=== PATIENT | male | born 1985 | race Caucasian/White ===

== ENCOUNTER → 2018-09-02 | Outpatient (CLI) | payer OTHER ==
[2015-10-31 17:01] VITALS: BP 102/57
[~2018-09-02] MED LIST: CEPH500T PO; HYDR-3164 PO
--- NOTE | 2018-09-02 15:27 | KCIC ---
MRI Lumbar Spine without contrast History: Back pain getting worse, muscle spasms, right hip and leg pain Technique: Multiplanar, multi sequential noncontrast MR imaging was performed of the lumbar spine. Comparison: None Findings: Lumbar vertebral body stature and AP alignment are maintained. There is mild to moderate degenerative disc disease at L5-S1. Conus terminates near L1. There is no significant marrow edema. L3-L4: Spinal canal and neural foramina are adequate. L4-L5: There is minimal buckling of the ligamentum flavum and facet degenerative change change. Neural foramina and spinal canal are adequate. L5-S1: There is protrusion/contained extrusion more eccentric to the right lateral recess estimated about 5 to 6 mm AP by about 12 mm transverse by 7 mm CC. This results in fairly severe right lateral recess stenosis and impingement of the descending right S1 nerve root. Neural foramina are adequate. Impression: 1. There is hksa-av-szogzqcc degenerative disease at L5-S1. There is protrusion/contained extrusion eccentric to the right lateral recess at L5-S1 with impingement of the distal right S1 nerve root. Electronically signed by: Leonidas Meyer MD (09/02/2018 3:24 PM) [facility]
== END | disposition home or self-care (01) ==
LOC: KCIC MRI 14:18
PROVIDERS: ATTEND Family Medicine
DX: M51.37 Other intervertebral disc degeneration, lumbosacral region (principal); M51.27 Other intervertebral disc displacement, lumbosacral region; M48.07 Spinal stenosis, lumbosacral region
CPT/HCPCS: 72148

== ENCOUNTER → 2019-02-03 | Outpatient (CLI) | payer OTHER ==
[2015-10-31 17:01] VITALS: BP 102/57
[~2019-02-03] MED LIST changes: +DOCU-109 PO; +IBUP200T58 PO; +METH-38 PO; +NAPR220T70 PO
== END | disposition home or self-care (01) ==
LOC: EDSTATUS 12:45 → SURG 13:58
PROVIDERS: ATTEND Neurological Surgery
DX: Z01.818 Encounter for other preprocedural examination (principal); M51.17 Intervertebral disc disorders with radiculopathy, lumbosacral region
CPT/HCPCS: 36415; 87641

== ENCOUNTER 2019-02-07 07:02 | Day surgery (SDC) | payer OTHER ==
--- NOTE | 2019-02-06 13:56 | HP ---
ADMIT DATE: 02/07/2019 PREOPERATIVE HISTORY AND PHYSICAL DATE OF SURGERY: 02/07/2019 HISTORY OF PRESENT ILLNESS: The patient is a pleasant 33-year-old, who has low back and right buttock and posterior thigh pain. He notes numbness in his right foot. The problem has been present for 2 years. He said over the last 5 months this has been severe. He rates his pain a 7-8/10. Mornings and bending make them worse. He has had physical therapy through 07/2018 without benefit. PAST MEDICAL HISTORY: Wound disimpaction, dystonia. PAST SURGICAL HISTORY: Urinary tract revision in 1997. FAMILY HISTORY: Cancer, heart problems and disease, hypertension, spine problems. SOCIAL HISTORY: Employed in maintenance. Single. Exercises daily. Denies substance abuse. Denies tobacco use. Drinks alcohol 1-2 times per day. ALLERGIES: No known drug allergies. CURRENT MEDICATIONS: Flexeril, Aleve, Advil, and Tylenol. REVIEW OF SYSTEMS: A 12-point review of systems was obtained and is noncontributory except for that mentioned above. PHYSICAL EXAMINATION: NEUROSURGERY EXAMINATION: GENERAL APPEARANCE: Alert, pleasant, in no acute distress. HEAD: Normocephalic, atraumatic. SKIN: Warm and dry. MUSCULOSKELETAL: Lumbar paraspinal muscle bulk is normal, restricted range of motion of the lumbar spine, eqgc-ni-eyaazarb tenderness of the lower lumbar spine with palpation, normal range of motion of the lower extremities bilaterally. EXTREMITIES: No clubbing, cyanosis or edema. NEUROLOGIC: Alert and oriented x 3, normal recent and remote memory. Strength 5/5 in bilateral lower extremities. Sensory is intact to light touch in bilateral lower extremities except for diffuse decrease involving his right foot. Reflexes are trace and symmetric in the lower extremities bilaterally, positive straight leg raising on the right, negative straight leg raising on the left, normal gait. IMAGING DATA: I reviewed a lumbar MRI scan. On that study, there are moderate degenerative changes at L5-S1 with a disk extrusion, eccentric to the right and the right lateral recess at L5-S1 with compression of the right S1 nerve. ASSESSMENT/ PLAN: The patient has significant radiculopathy. He failed to improve with conservative measures. My recommendation is that he will undergo lumbar microsurgery. I spoke about surgery and the risks involved. He understands. He would like to go ahead. We will make the arrangements. SAMUEL Isabella HAMMER MD DR: Saima JOB#: [id number] / [id number] LAUREN
[~2019-02-07] VITALS: Ht 172.7 cm; Wt 77.1 kg
[~2019-02-07 07:02] MED LIST changes: +BACITRACIN 50,000 UNIT in IV NORMAL SALINE 1000ML BAG 1,000 ML IRR ONE; +BUPIVACAINE-EPI 0.5%-1:200000 MPF 30 ML VIAL. INJ ONE; -DOCU-109 PO; +HYDROmorphone 2 MG/ML VIAL IV PRN; +IV RINGERS,LACTATED 1000ML 1,000 ML IV SCH; +LIDOCAINE 1% PF 2 ML VIAL. ID PRN; -METH-38 PO; +MORPHINE SULFATE 2 MG/ML VIAL. IV PRN; +ONDANSETRON PF 4 MG/2 ML VIAL. IV PRN; +PROCHLORPERAZINE 10 MG/2 ML VIAL. IV PRN; +fentaNYL PF VIAL 100 MCG/2 ML VIAL IV PRN
[2019-02-07] MEDS ORDERED: THROMBIN TOPICAL 20,000 UNIT SPRAY.SYRN KIT TP ONE (07:08)
[2019-02-07] MEDS ORDERED: KETOROLAC 60 MG/2 ML VIAL. ONE (07:08)
[2019-02-07] MEDS ORDERED: GELATIN SPONGE SIZE 100. ONE (07:08)
[2019-02-07] MEDS ORDERED: ROCURONIUM 50 MG/5 ML VIAL. ONE (08:17)
[2019-02-07] MEDS ORDERED: MIDAZOLAM HCL/PF 2 MG/2 ML VIAL. ONE (08:17)
[2019-02-07] MEDS ORDERED: REMIFENTANIL 2 MG VIAL. IV ONE (08:17)
[2019-02-07] MEDS ORDERED: LIDOCAINE 2% PF 5 ML VIAL. ONE (08:18)
[2019-02-07] MEDS ORDERED: DEXAMETHASONE SOD PHOS 20 MG/5 ML VIAL. ONE (08:18)
[2019-02-07] MEDS ORDERED: PROPOFOL 0 ML IV ONE (08:18)
[2019-02-07] MEDS ORDERED: DESFLURANE 61 TO 120 MINUTES IH ONE (08:18)
[2019-02-07] MEDS ORDERED: PROPOFOL 20 ML IV ONE (08:18)
[2019-02-07] MEDS ORDERED: ONDANSETRON PF 4 MG/2 ML VIAL. ONE (08:18)
[2019-02-07] MEDS ORDERED: GLYCOPYRROLATE 1 MG/5 ML VIAL. ONE (08:18)
[2019-02-07] MEDS ORDERED: FAMOTIDINE 20 MG/2 ML VIAL ONE (08:19)
[2019-02-07] MEDS ORDERED: PHENYLEPHRINE 10 MG/ML VIAL. ONE (08:26)
[2019-02-07] MEDS ORDERED: SCOPOLAMINE 1.5MG PATCH. TD SCH (09:00)
[2019-02-07] MEDS ORDERED: SCOPOLAMINE 1.5MG PATCH. TD ONE (09:00)
[2019-02-07] MEDS ORDERED: NEOSTIGMINE METHYLSULFATE 5 MG/5 ML SYRINGE. ONE (09:30)
[2019-02-07] MEDS ORDERED: HYDR-3164 PO (09:41)
[2019-02-07] MEDS ORDERED: METH-38 PO (09:41)
[2019-02-07] MEDS ORDERED: DOCU-109 PO (09:41)
--- NOTE | 2019-02-07 09:42 | DISCH ---
DISCHARGE INSTRUCTIONS Condition on Discharge Condition on Discharge: Stable Activity After Discharge Activity Instructions for Disc: Activity as tolerated, Avoid exertion Other activity instructions: no driving for a week Lifting Instructions after Dis: No heavy lifting, No pulling or pushing, Do not lift >10 pounds Diet after Discharge Diet after Discharge: Regular Additional Diet Restrictions: resume home diet Wound Incision Care Wound/Incision Care: Ice to area for comfort Other wound/incision instructi: may remove dressing in 48 hours if dry then may shower, no soaking Contacting the [facility] after DC Call your doctor for: Concerns you may have Follow-Up Follow up with: Dr. Hammer's nurse in 2 weeks [phone] SAMUEL HAMMER MD Feb 07, 2019 09:42
[2019-02-07] MEDS ORDERED: PROPOFOL 50 ML IV ONE (10:58)
[2019-02-07] MEDS ORDERED: DESFLURANE > 120 MINUTES IH ONE (10:59)
[2019-02-07] MEDS ORDERED: KETOROLAC 30 MG/ML VIAL. ONE (11:11)
[2019-02-07] MEDS ORDERED: fentaNYL PF VIAL 100 MCG/2 ML VIAL ONE (11:12)
--- NOTE | 2019-02-07 11:30 | OP ---
DATE OF SURGERY: 02/07/2019 PREOPERATIVE DIAGNOSES: Herniated lumbar disc, L5-S1, right, with right lumbar radiculopathy. POSTOPERATIVE DIAGNOSES: Herniated lumbar disc, L5-S1, right, with right lumbar radiculopathy. OPERATION PERFORMED: Hemilaminotomy and microdiscectomy L5-S1, right. The operation was done with EMG monitoring, SSEP monitoring, fluoroscopy, microscopic dissection. SURGEON: Amilcar Hammer M.D. PROSTHETIC AIDE: DAPHNEY Bridges assisted with the surgery. She assisted with the exposure, the microdiscectomy as well as the closure. OPERATIVE INDICATIONS: The patient is a pleasant 33-year-old with a long history of problems with back and right leg pain which failed conservative measures. On imaging studies, there is a very large disc herniation at L5-S1 on the right and I recommended lumbar microsurgery. He understood the surgery and the risks, the technique and expected postoperative course and he wished to go ahead. DESCRIPTION OF PROCEDURE: Following general endotracheal anesthesia, the patient was positioned prone on the Diomedes table. Lumbar region prepped and draped in standard fashion. FALGUNI hose and AV impulse boots were applied for DVT prophylaxis. The microscope was draped. Fluoroscopy was draped and brought into the field. Monitoring was established. Ancef 2 grams was given less than 1 hour prior to initiation of surgery. Using fluoroscopic guidance, a midline incision was made directly over the L5-S1 interspace. I dissected down through skin and subcutaneous tissue. I placed a [place] microdisk retractor. I brought in the microscope and using high speed air drill, I burred down a generous hemilaminotomy. I exposed the ligamentum and I performed a partial foraminotomy. I peeled the ligamentum away and the dura and nerve roots were lifted by a very large subligamentous disc. I gently retracted the root medially, incised the ligament annulus and began removing disc material. The disc was tenacious, scarred, partly calcified. It was difficult to remove, although there were no problems. As I worked, I was able to decompress the region, although there remained disc bulging from the calcified herniated disc after the region had been widely decompressed. I did enlarge my foraminotomy. I fully decompressed the region. There were no difficulties with regard to nerve root retraction which was quite gentle. I did use the bipolar cautery as well as bone wax for hemostasis and at the end at this point, then I felt that the root was free. The nerve root could be retracted gently medially without any undue pressure. I irrigated copiously. Hemostasis at the end of the operation was excellent. I irrigated, closed the wound in layers with absorbable suture. The skin closed with 4-0 subcuticular stitch. The operation went well and the patient awakened uneventfully. I was quite pleased with the surgery. AMILCAR HAMMER MD DR: DAVID/shawanda JOB#: [id number] / [id number] LAUREN
[2019-02-07] MEDS ORDERED: HYDROcodone/APAP 5/325MG 1 TAB TABLET PO ONE ×2 (12:00)
[2019-02-07 12:44] VITALS: BP 117/74
--- NOTE | 2019-02-10 18:06 | PATHOLOGY ---
[facility] Accession Number: [id number] . 01 Material submitted: . vertebral column - LUMBAR DISC AND DECOMPRESSION . 01 Clinical history: . Lumbar herniated disc and radiculopathy . 02 Diagnosis: Segments of fibrocartilaginous, fibroadipose, and skeletal muscle tissue and bone, lumbar disc and decompression: - Degenerative changes of fibrocartilaginous tissue. (JPM:java software; 02/10/2019) MBR 02/10/2019 1605 Local . 02 Comment: There is no evidence of an acute inflammatory process or malignancy. (JPM:java software; 02/10/2019) . 02 Electronically signed: . Juaquin Bañuelos MD, Pathologist NPI- [id number] . 01 Gross description: . Received in formalin labeled "Moi Pearson, lumbar disc and decompression," are several pieces of glistening, fibrous tissue measuring 3.5 x 1.7 x 0.9 cm in aggregate dimensions, containing small fragments of possible bone. The tissue is submitted representatively in cassette A1, following decalcification. (TSD; 02/07/2019) TOB/TOB 02/07/20192039 Local . 02 Pathologist provided ICD-10: M51.26, M54.16 . 02 CPT . 372070, 518371 Specimen Comment: A courtesy copy of this report has been sent to [phone], [phone] Specimen Comment: [id number] Specimen Comment: Report sent to / DR TREVINO Performed at: 01 [facility] [address], [place], [place] [id number] MD Jewel Caban MD Phone: [phone] Performed at: 02 [facility] [address], [place] [id number] MD Juaquin Bañuelos MD Phone: [phone]
== END 2019-02-07 13:03 | disposition home or self-care (01) ==
LOC: SURG 07:02
PROVIDERS: ATTEND Neurological Surgery
DX: M51.16 Intervertebral disc disorders with radiculopathy, lumbar region (principal); E66.3 Overweight; Z68.25 Body mass index [BMI] 25.0-25.9, adult; Z72.89 Other problems related to lifestyle
CPT/HCPCS: 63030; 88304; 88311; 97161; J0696; J1100; J1885; J2001; J2250; J2405; J2704; J2710; J3490; J7030; 76000; J3010